=== PATIENT | male | born 1960 | race Caucasian/White ===

== ENCOUNTER 2018-12-30 19:27 | Emergency (ER) | payer SELFPAY ==
--- NOTE | 2018-12-30 20:08 | CR ---
0414-0516 RAD/RAD Ankle Right 3V Min EXAM: RIGHT ANKLE 3 VIEWS INDICATION: FALL CAUGHT FOOT ON LADDER COMPARISON: None. DISCUSSION: There is an acute medial malleolus fracture with about 3 mm of distraction. Possible avulsion fracture off the lateral aspect of the distal fibula. Comminuted intra-articular calcaneus fracture extending to the posterior facet and the calcaneal cuboid articulations where there is step-off and distraction. Soft tissue swelling. No dislocation or other osseous abnormality is identified. Small loose bodies are suggested in the anterior aspect of the tibiotalar joint. IMPRESSION: 1. Comminuted intra-articular calcaneus fracture. 2. Mildly distracted medial malleolus fracture and possible small avulsion fracture off the distal fibula. Rafael German MD 12/30/182006 Thank you for allowing us to participate in the care of your patient.
--- NOTE | 2018-12-30 20:33 | EDM.PDOC ---
ED HPI GENERAL MEDICAL PROBLEM - General Chief Complaint: Lower Extremity Injury/Pain Stated Complaint: INJURY TO ANKLE Time Seen by Provider: 12/30/18 19:35 Source of Information: Reports: Patient History Limitations: Reports: No Limitations - History of Present Illness INITIAL COMMENTS - FREE TEXT/NARRATIVE: Pt. presents to ER with complaints of pain to R foot and ankle. She states that she caught her foot in between the rungs of a ladder and he fall approx. 8 feet onto the R foot. Denies any injury to head or neck. No chest or back pain. No abdominal pain. Pt. states that he is unable to bear weight. Denies numbness or tinging in distal portion of the foot. States that pain is located in the hind foot but also within the ankle as well. 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 [No Known Home Meds] 12/30/18 [History] Past Medical History - Past Health History Medical/Surgical History: Denies Medical/Surgical History - Past Surgical History Musculoskeletal Surgical History: Reports: Other (See Below) Other Musculoskeletal Surgeries/Procedures:: surgery to left leg as a child following a farm injury Social & Family History - Tobacco Use Smoking Status *Q: Current Every Day Smoker Years of Tobacco use: 35 Packs/Tins Daily: 1 - Recreational Drug Use Recreational Drug Use: No Review of Systems - Review of Systems Review Of Systems: See Below Constitutional: Reports: No Symptoms Eyes: Reports: No Symptoms Ears: Reports: No Symptoms Nose: Reports: No Symptoms Mouth/Throat: Reports: No Symptoms Respiratory: Reports: No Symptoms Cardiovascular: Reports: No Symptoms GI/Abdominal: Reports: No Symptoms Genitourinary: Reports: No Symptoms Musculoskeletal: Reports: Foot Pain, Joint Pain, Joint Swelling Skin: Reports: No Symptoms Neurological: Reports: No Symptoms Psychiatric: Reports: No Symptoms ED EXAM, GENERAL - Physical Exam Exam: See Below Exam Limited By: No Limitations General Appearance: Alert, WD/WN, No Apparent Distress Extremities: Limited Range of Motion, Other (pain to palp of ankle and calcaneus. No obvious crepitus noted. CMS intact. Significant edema to the ankle and foot.) Course - Vital Signs Last Recorded V/S: Last Vital Signs Temp 36.8 C 12/30/18 19:30 Pulse 87 12/30/18 19:30 Resp 16 12/30/18 19:30 BP 131/84 12/30/18 19:30 Pulse Ox 96 12/30/18 19:30 - Orders/Labs/Meds Orders: Active Orders 24 hr Category Date Time Status Ankle wo Cont Rt [CT] Stat Exams 12/30/18 20:24 Ordered - Radiology Interpretation Free Text/Narrative:: R comminuted intraarticular calcaneus fx. Mildly distracted medial malleolus fx. Possible distal fibula fracture. Departure - Departure Time of Disposition: 21:00 Disposition: Home, Self-Care 01 Clinical Impression: Calcaneus fracture, right, Fracture of medial malleolus of right tibia - Discharge Information Referrals: PCP,None [Primary Care Provider] - - Problem List Review Problem List Initiated/Reviewed/Updated: Yes - My Orders Last 24 Hours: My Active Orders 12/30/18 20:24 Ankle wo Cont Rt [CT] Stat - Assessment/Plan Last 24 Hours: My Active Orders 12/30/18 20:24 Ankle wo Cont Rt [CT] Stat Plan: Spoke with Dr. Matos at [facility]. Pt. will be contacted by [facility] on Tuesday for appointment. Pt. was placed in a CAM boot. He was started on crutches. [place] 5/325mg 1 every 4-6 hours as needed for pain. Elevate leg and ice foot and ankle for 10-15 min every 1-[address] scan of ankle is being performed to determine full extent of injury. Images will be sent to [facility].
[2018-12-30] MEDS ORDERED: Take Home: Acetaminophen/HYDROcodone 325-5 MG, 5 Tab Pack PO ONE (20:35)
--- NOTE | 2018-12-31 10:46 | CT ---
[id number] CT/CT Ankle Right WO IV EXAM: CT Ankle Right WO IV INDICATION: Complex calcaneal fracture. COMPARISON: Radiograph same date FINDINGS: There is a comminuted calcaneus fracture with mild flattening of the calcaneus. Fracture lines extend to the posterior subtalar and calcaneal cuboid joints where there is 1-2 mm step-off and distraction at the articular surface. Other areas of the fracture demonstrate up to 6 mm displacement and distraction. No involvement is seen of the anterior or middle subtalar facets. Acute medial malleolus fracture extending to the articular surface where there is about 2.5 mm step-off and distraction. Acute distal fibula fracture with avulsion of the superficial anterolateral cortex. There are scattered small osseous fragments within the tibiotalar joint likely arising from the malleolar fractures. Diffuse soft tissue swelling throughout the imaged ankle. IMPRESSION: 1. Complex multidirectional calcaneal fracture with involvement of the posterior subtalar and calcaneocuboid articulations. 2. Displaced medial malleolus fracture. 3. Acute mildly distracted avulsion fractures involving the anterior lateral aspect of the distal fibula. Rafael German MD 12/31/18 1045 Thank you for allowing us to participate in the care of your patient.
== END 2018-12-30 21:00 | disposition home or self-care (01) ==
LOC: VM.ED 19:27
DX: S92.061A Displaced intraarticular fracture of right calcaneus, initial encounter for closed fracture (principal); S82.51XA Displaced fracture of medial malleolus of right tibia, initial encounter for closed fracture; F17.210 Nicotine dependence, cigarettes, uncomplicated; W11.XXXA Fall on and from ladder, initial encounter
CPT/HCPCS: 73610-RT; 73700-RT; 99284-25; A9270-GY